=== PATIENT | female | born 1935 | race Caucasian/White ===

== ENCOUNTER → 2016-12-12 | Outpatient (CLI) | payer OTHER, MEDICARE ==
[~2016-12-12] MED LIST: CYMBALTA60 MG PO; NEURONTIN 300300 M1 PO; NOHOMEMEDICATIONS; TYLENOL EX-STR500 M2 PO
== END ==
LOC: RAD 01:33
DX: Z12.31 Encounter for screening mammogram for malignant neoplasm of breast (principal); C50.911 Malignant neoplasm of unspecified site of right female breast

== ENCOUNTER → 2016-12-16 | Outpatient (CLI) | payer OTHER, MEDICARE | LOC: RAD 00:53 → ULTRA 00:53 → RAD 17:06 | DX: C50.411 Malignant neoplasm of upper-outer quadrant of right female breast (principal); N85.00 Endometrial hyperplasia, unspecified; C54.1 Malignant neoplasm of endometrium ==

== ENCOUNTER → 2017-12-16 | Outpatient (CLI) | payer OTHER, MEDICARE | LOC: RAD 09:43 | DX: R92.8 Other abnormal and inconclusive findings on diagnostic imaging of breast (principal); Z90.11 Acquired absence of right breast and nipple; Z85.3 Personal history of malignant neoplasm of breast ==

== ENCOUNTER → 2018-12-17 | Outpatient (CLI) | payer OTHER | LOC: RAD 01:42 | DX: Z12.31 Encounter for screening mammogram for malignant neoplasm of breast (principal) ==

== ENCOUNTER → 2019-12-21 | Outpatient (CLI) | payer OTHER ==
[~2019-12-21] MED LIST changes: +PEPCID40 MG PO; +TRAMADOL 50 MG50 MG PO
== END ==
LOC: BC 08:56
DX: Z12.31 Encounter for screening mammogram for malignant neoplasm of breast (principal); Z85.3 Personal history of malignant neoplasm of breast

== ENCOUNTER → 2020-01-24 | Outpatient (CLI) | payer OTHER ==
[~2020-01-24] VITALS: Ht 160 cm; Wt 56.7 kg
[~2020-01-24] MED LIST changes: +FLORANEX TABLE1 EACH PO; +PROTONIX40 M1 PO
--- NOTE | 2020-01-26 16:07 | PATH ---
[facility] [address] [place] [address] PATHOLOGY RPT PROCEDURE Name: WU JULIEN Cyndy Room #: REG [facility].#: [id number] Admission: 01/24/20 Date of : 31 Discharge: Report #: [id number] Path Case #: [id number] [facility] Accession Number: [id number] . 01 Material submitted: . stomach - BIOPSY GASTRITIS R/O H. PYLORI . 01 Clinical history: . Pre-op diagnosis: GERD Post-op diagnosis: Gastritis R/O H. pylori . 02 Diagnosis: Gastric mucosa, gastritis rule out H. pylori, endoscopic biopsy: - Mild chronic gastritis. - Negative for intestinal metaplasia or atrophy. - Negative for Helicobacter pylori (properly controlled immunohistochemical stain performed). (IUV/db; 01/26/2020) LBQ 01/26/2020 1318 Local . 02 Electronically signed: . Annabelle Schulz MD, Pathologist NPI- [id number] . 01 Gross description: . The specimen is received in formalin, labeled "Wu Julien, biopsy gastritis, R/O H. pylori". Received are five segments of pale rivera soft tissue ranging in size from 0.3 to 0.4 cm in maximum dimensions. The specimen is submitted entirely in cassette A1. (CAA; 01/25/2020) QAC/QAC 01/25/2020 1131 Local . 02 Pathologist provided ICD-10: K29.50 . 02 CPT . 511723, [id number] Specimen Comment: A courtesy copy of this report has been sent to [phone], [phone] Specimen Comment: [phone] Specimen Comment: Report sent to / DR SALGADO Performed at: [address] [id number] MD Ananth Durbin MD Phone: [phone] Performed at: [address] [address] PATHOLOGY RPT PROCEDURE Name: WU JULIEN Room #: REG [facility].#: [id number] Admission: 01/24/20 Date of : 31 Discharge: Report #: [id number] Path Case #: [id number] [address] [id number] MD Annabelle Schulz MD Phone: [phone]
--- NOTE | 2020-01-27 10:45 | P ---
[facility] [place] [address] PROCEDURE REPORT Name: WU BARNEY Room #: REG [facility]#: [id number] Admission: 01/24/20 Attend Phys: Howard Klein MD Discharge: Date of : 31 Report #: [id number] THIS REPORT FOR: cc: Clarence Knutson MD, Steven E. MD Thesing, John A. MD ~ CC: Howard Knutson MD DATE OF SERVICE: 01/24/2020 BRIEF HISTORY: The patient is an 84-year-old woman with a history of colon cancer and lung cancer who recently had vague epigastric discomfort with anorexia. She did not eat for 5 days and ended up in the [facility]. She had multiple examinations and radiologic studies and was told to follow up with the GI doctor. She was placed on pantoprazole and symptoms have improved, but have not completely resolved. PREOPERATIVE DIAGNOSES: Epigastric pain, anorexia. Intermittent solid food dysphagia. POSTOPERATIVE DIAGNOSES: 1. Moderate erosive antral gastritis. 2. Small, less than 2 cm sliding type hiatus hernia. 3. Mild Schatzki ring. MEDICATIONS: Deep sedation with propofol per anesthesia. SPECIMEN: Biopsies of gastritis. ESTIMATED BLOOD LOSS: 3 mL. PROCEDURE: EGD with biopsy and dilation of the ring over a guidewire. FINDINGS: Prior to propofol sedation, procedure of upper endoscopy was reviewed with the patient as well as potential risks and its complications. She indicates she understands and desires to proceed. DESCRIPTION OF PROCEDURE: With the patient in left lateral decubitus position, the Olympus video endoscope was inserted in the cervical esophagus under direct vision without difficulty. Examination of this organ through its entire style length revealed normal esophageal mucosa down the squamocolumnar junction. At the squamocolumnar junction, she was found to have evidence of mild Schatzki ring. Intermittently, a small, less than 2 cm sliding type hiatus hernia was seen. Mucosa and hernia was unremarkable. Scope was advanced into the stomach, [facility] [address] [place] [address] PROCEDURE REPORT Name: WU BARNEY Room #: REG [facility].#: [id number] Admission: 01/24/20 Attend Phys: Howard Klein MD Discharge: Date of : 31 Report #: [id number] was examined on end view as well as retroflexed views. Examination of the proximal stomach revealed normal mucosa. In the retroflexed position, no mass lesions were seen. Examination of the distal stomach did reveal multiple erosions in the antrum, but no ulcers were seen. There is no evidence of bleeding. Also, no mass lesions were seen. The pylorus was unremarkable. Duodenal bulb was unremarkable. Duodenal sweep down to the second portion was unremarkable. At that point, the scope was slowly withdrawn and careful circumferential views confirmed the above findings. The patient tolerated the procedure well. We initially attempted to dilate her ring with a 50-[place] Salgado dilator. However, I could not, however, would not easily pass in the esophagus. The scope was reintroduced and a guidewire was inserted, retrieved and pulled out the mouth. She was dilated with passage of 51-[place] Savary dilator over the wire. It passed without difficulty. CONDITION OF THE PATIENT UPON DISCHARGE: Following procedure, the patient drowsy, aroused, conversant and will be discharged home when fully ambulatory. INSTRUCTIONS TO THE PATIENT AND FAMILY AT THE TIME OF DISCHARGE: The patient with findings as noted above. I am not sure of the erosions fully explain her symptoms; however, she reports she has had some improvement with pantoprazole. We will obtain records from [employer] for review. Also, have her return for followup in the office in about 6 weeks to monitor progress. I am not sure what studies were done. If she has not had a gallbladder evaluation, that may be helpful as well. <ELECTRONICALLY SIGNED> By: Howard Klein MD 01/27/20 1045 1029 1240 Howard Klein MD /nt
== END | disposition home or self-care (01) ==
LOC: GI 08:36
DX: R10.13 Epigastric pain (principal); K29.50 Unspecified chronic gastritis without bleeding; K22.2 Esophageal obstruction; R13.19 Other dysphagia; K44.9 Diaphragmatic hernia without obstruction or gangrene; K21.9 Gastro-esophageal reflux disease without esophagitis; C34.91 Malignant neoplasm of unspecified part of right bronchus or lung; Z85.038 Personal history of other malignant neoplasm of large intestine; Z98.890 Other specified postprocedural states; Z98.0 Intestinal bypass and anastomosis status; Z79.899 Other long term (current) drug therapy; Z98.42 Cataract extraction status, left eye; Z98.41 Cataract extraction status, right eye; Z85.3 Personal history of malignant neoplasm of breast; Z87.442 Personal history of urinary calculi
CPT/HCPCS: 62110; 62900

== ENCOUNTER → 2020-12-26 | Outpatient (CLI) | payer OTHER | LOC: RAD 12:53 | PROVIDERS: ATTEND Family Medicine | DX: Z12.31 Encounter for screening mammogram for malignant neoplasm of breast (principal) ==